=== PATIENT | female | born 1970 | race Caucasian/White ===

== ENCOUNTER 2018-10-25 01:42 | Emergency (ER) | payer SELFPAY ==
--- NOTE | 2018-10-25 02:08 | EDPHYS ---
Physician Documentation [facility] Name: Angela Zafar Age: 48 yrs Sex: Female : 1970 Arrival Date: 10/25/2018 Time: 01:49 Bed 6 Private MD: ED Physician Tapan Gomez HPI: 10/25 02:00 This 48 yrs old Female presents to ER via EMS with complaints of Laceration ollie To Hand. 02:00 The patient has a laceration related to: doing crafts, occurred at home, and there are ollie no complicating factors. The laceration(s) is(are) located on the right hand. Onset: The symptoms/episode began/occurred just prior to arrival. Associated signs and symptoms: The patient has no apparent associated signs or symptoms. 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 - Social history:: Smoking status: Patient uses tobacco products, smokes one pack cigarettes per day. Patient uses alcohol. - Ebola Screening: : No symptoms or risks identified at this time. ROS: 02:01 Constitutional: Negative for fever, chills, and weight loss, Eyes: Negative for injury, ollie pain, redness, and discharge, ENT: Negative for injury, pain, and discharge, Neck: Negative for injury, pain, and swelling, Cardiovascular: Negative for chest pain, palpitations, and edema, Respiratory: Negative for shortness of breath, cough, wheezing, and pleuritic chest pain, Abdomen/GI: Negative for abdominal pain, nausea, vomiting, diarrhea, and constipation, Back: Negative for injury and pain, : Negative for injury, bleeding, discharge, and swelling, Skin: Negative for injury, rash, and discoloration, Neuro: Negative for headache, weakness, numbness, tingling, and seizure, Psych: Negative for depression, anxiety, suicide ideation, homicidal ideation, and hallucinations, Allergy/Immunology: Negative for hives, rash, and allergies, Endocrine: Negative for neck swelling, polydipsia, polyuria, polyphagia, and marked weight changes, Hematologic/Lymphatic: Negative for swollen nodes, abnormal bleeding, and unusual bruising. 02:01 MS/extremity: Positive for pain, tenderness, of the right hand. Exam: 02:01 Constitutional: This is a well developed, well nourished patient who is awake, alert, ollie and in no acute distress. Head/Face: Normocephalic, atraumatic. Eyes: Pupils equal round and reactive to light, extra-ocular motions intact. Lids and lashes normal. Conjunctiva and sclera are non-icteric and not injected. Cornea within normal limits. Periorbital areas with no swelling, redness, or edema. ENT: Nares patent. No nasal discharge, no septal abnormalities noted. Tympanic membranes are normal and external auditory canals are clear. Oropharynx with no redness, swelling, or masses, exudates, or evidence of obstruction, uvula midline. Mucous membranes moist. Neck: Trachea midline, no thyromegaly or masses palpated, and no cervical lymphadenopathy. Supple, full range of motion without nuchal rigidity, or vertebral point tenderness. No Meningismus. Chest/axilla: Normal chest wall appearance and motion. Nontender with no deformity. No lesions are appreciated. Cardiovascular: Regular rate and rhythm with a normal S1 and S2. No gallops, murmurs, or rubs. Normal PMI, no JVD. No pulse deficits. Respiratory: Lungs have equal breath sounds bilaterally, clear to auscultation and percussion. No rales, rhonchi or wheezes noted. No increased work of breathing, no retractions or nasal flaring. Abdomen/GI: Soft, non-tender, with normal bowel sounds. No distension or tympany. No guarding or rebound. No evidence of tenderness throughout. Back: No spinal tenderness. No costovertebral tenderness. Full range of motion. Skin: Warm, dry with normal turgor. Normal color with no rashes, no lesions, and no evidence of cellulitis. Neuro: Awake and alert, GCS 15, oriented to person, place, time, and situation. Cranial nerves II-XII grossly intact. Motor strength 5/5 in all extremities. Sensory grossly intact. Cerebellar exam normal. Normal gait. Psych: Awake, alert, with orientation to person, place and time. Behavior, mood, and affect are within normal limits. 02:01 Musculoskeletal/extremity: ROM: full active range of motion, full passive range of motion, limited active range of motion, limited passive range of motion, Circulation is intact in all extremities. Sensation intact. Compartment Syndrome exam of affected extremity: is normal. no pain, no numbness, no tingling, no sensation deficit, no palor, no weak pulses. 02:01 Skin: injury, laceration(s), the wound is approximately 2.54 cm(s), with a depth of .25 cm(s), of the right hand. Vital Signs: 01:51 BP 126 / 87; Pulse 110; Resp 16 S; Temp 98.4(O); Pulse Ox 98% on R/A; Weight 63.5 kg bb (R); Height 5 ft. 0 in. (152.40 cm) (R); Pain 5/10; 02:35 BP 121 / 84; Pulse 106; Resp 17 S; Pulse Ox 98% on R/A; cc3 01:51 Body Mass Index 27.34 (63.50 kg, 152.40 cm) bb Laceration: 02:02 Wound Repair of 2.5cm ( 1.0in ) subcutaneous laceration to right hand. Irregularly ollie shaped.. Distal neuro/vascular/tendon intact. Anesthesia: Local anesthetic administered with 5 mls of 1% lidocaine w/ Epi. Wound prep: Simple cleansing by me. Skin closed with 3 3-0 Prolene using interrupted sutures and sterile technique. Dressed with Neosporin. Patient tolerated well. MDM: 01:49 Patient medically screened. [facility] 02:05 Data reviewed: vital signs, nurses notes, radiologic studies, plain films. [facility] 10/25 02:00 Order name: Hand Right 2 View XRAY [facility] 10/25 02:00 Order name: Prolene, Sutures; Complete Time: 02:[address] [facility] 10/25 02:00 Order name: Dressing - Wound; Complete Time: 02:[address] [facility] 10/25 02:00 Order name: Gloves, Sterile; Complete Time: 02:[address] [facility] 10/25 02:00 Order name: Setup Suture Tray; Complete Time: 02:[address] 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 Exp: cc3 07/04/2020. Lot #: [id number]. } Route: IM; Site: left deltoid; 02:22 Follow up: Response: No adverse reaction cc3 02:20 Drug: Lidocaine-Epinephrine -1%: (1:100,000) 5 ml {Note: given by Dr. Gomez.} jtom Volume: 20 ml; Route: Infiltration; 02:25 Follow up: Response: No adverse reaction cc3 02:25 Drug: Neosporin Ointment 1 application {Note: right hand wound.} Route: Topical; Site: cc3 wound; 02:37 Follow up: Response: No adverse reaction cc3 Disposition: 10/25/18 02:07 Discharged to Home. Impression: Laceration without foreign body of right hand. - Condition is Stable. - Discharge Instructions: Laceration Care, Adult, Laceration Care, Adult, Jhpr-on-Nptv. - Prescriptions for Keflex 500 mg Oral Capsule - take 1 capsule by ORAL route every 6 hours for 10 days; 28 capsule. Tylenol- Codeine #3 300-30 mg Oral Tablet - take 2 tablets by ORAL route every 6 hours As needed; 20 tablet. - Medication Reconciliation Form, Thank You Letter, Antibiotic Education, Prescription Opioid Use form. - Follow up: Private Physician; When: 2 - 3 days; Reason: Recheck today's complaints, Continuance of care, Re-evaluation by your physician. - Problem is new. - Symptoms have improved. Signatures: Dispatcher [employer] EDTapan Lobo MD MD cha Ballard, Brenda, RN RN Tk Briones RN RN jd3 Cordel, Charlene cc3 Corrections: (The following items were deleted from the chart) 02:39 02:07 10/25/2018 02:07 Discharged to Home. Impression: Laceration without foreign body cc3 of right hand. Condition is Stable. Forms are Medication Reconciliation Form, Thank You Letter, Antibiotic Education, Prescription Opioid Use. Follow up: Private Physician; When: 2 - 3 days; Reason: Recheck today's complaints, Continuance of care, Re-evaluation by your physician. Problem is new. Symptoms have improved. ollie
--- NOTE | 2018-10-25 02:08 | ER ---
Nurse's Notes [facility] Name: Angela Zafar Age: 48 yrs Sex: Female : 1970 Arrival Date: 10/25/2018 Time: 01:49 Bed 6 Private MD: Diagnosis: Laceration without foreign body of right hand Presentation: 10/25 01:49 Presenting complaint: EMS states: they were toned out for report of pt having bb laceration to right hand. Pt states she hit the window with her right hand. Transition of care: patient was not received from another setting of care. Complicating Factors: There are no complicating factors for this patient. Onset of symptoms was October 25, 2018. Risk Assessment: Do you want to hurt yourself or someone else? Patient reports no desire to harm self or others. Initial Sepsis Screen: Does the patient meet any 2 criteria? No. Patient's initial sepsis screen is negative. Does the patient have a suspected source of infection? No. Patient's initial sepsis screen is negative. Care prior to arrival: None. 01:49 Method Of Arrival: EMS: [facility] 01:49 Acuity: [facility] 4 bb 01:53 Note pt went outside to smoke states she will be right back. 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 - Social history:: Smoking status: Patient uses tobacco products, smokes one pack cigarettes per day. Patient uses alcohol. - Ebola Screening: : No symptoms or risks identified at this time. Screenin:05 Abuse screen: Denies threats or abuse. Nutritional screening: No deficits noted. jd3 Tuberculosis screening: No symptoms or risk factors identified. Fall Risk Ambulatory Aid- None/Bed Rest/Nurse Assist (0 pts). Gait- Normal/Bed Rest/Wheelchair (0 pts) Mental Status- Oriented to own ability (0 pts). Total Muñoz Fall Scale indicates No Risk (0-24 pts). Assessment: 01:50 General: Appears in no apparent distress. uncomfortable, Behavior is calm, cooperative, jd3 appropriate for age. Pain: Complains of pain in dorsum of right hand Quality of pain is described as aching, stinging. Neuro: Level of Consciousness is awake, alert, obeys commands, Oriented to person, place, time, situation. Cardiovascular: Capillary refill < 3 seconds Patient's skin is warm and dry. Respiratory: Airway is patent Respiratory effort is even, unlabored, Respiratory pattern is regular, symmetrical. GI: No signs and/or symptoms were reported involving the gastrointestinal system. : No signs and/or symptoms were reported regarding the genitourinary system. EENT: No signs and/or symptoms were reported regarding the EENT system. Derm: Skin is intact, Skin is dry, Skin is normal, Skin temperature is warm. Musculoskeletal: Circulation, motion, and sensation intact. Range of motion: intact in all extremities. Injury Description: Laceration sustained to dorsum of right hand is clean, 0.5 to 2.5 cm long, not bleeding. 02:37 Reassessment: Patient appears in no apparent distress at this time. Patient and/or cc3 family updated on plan of care and expected duration. Pain level reassessed. Patient is alert, oriented x 3, equal unlabored respirations, skin warm/dry/pink. Dr. Gomez discharged the patient home with prescriptions given. No IV cannula in situ. Wound cleaning and dressing done. Patient left ER vitally stable and ambulatory. Patient denies pain at this time. Vital Signs: 01:51 BP 126 / 87; Pulse 110; Resp 16 S; Temp 98.4(O); Pulse Ox 98% on R/A; Weight 63.5 kg bb (R); Height 5 ft. 0 in. (152.40 cm) (R); Pain 5/10; 02:35 BP 121 / 84; Pulse 106; Resp 17 S; Pulse Ox 98% on R/A; cc3 01:51 Body Mass Index 27.34 (63.50 kg, 152.40 cm) ED Course: 01:49 Patient arrived in ED. khang 01:49 Tapan Gomez MD is Attending Physician. [facility] 01:49 Briseyda Lazaro is Primary Nurse. cc3 01:50 Triage completed. bb 01:51 Arm band placed on Patient placed in an exam room, on a stretcher, on pulse oximetry. bb 02:06 Patient has correct armband on for positive identification. Bed in low position. Call jd3 light in reach. Side rails up X 1. 02:12 X-ray completed. Portable x-ray completed in exam room. Patient tolerated procedure kw well. 02:13 Hand Right 2 View XRAY In Process Unspecified. EDMS 02:37 No provider procedures requiring assistance completed. Patient did not have IV access cc3 during this emergency room visit. 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 Exp: cc3 07/04/2020. Lot #: [id number]. } Route: IM; Site: left deltoid; 02:22 Follow up: Response: No adverse reaction cc3 02:20 Drug: Lidocaine-Epinephrine -1%: (1:100,000) 5 ml {Note: given by Dr. Gomez.} jd3 Volume: 20 ml; Route: Infiltration; 02:25 Follow up: Response: No adverse reaction cc3 02:25 Drug: Neosporin Ointment 1 application {Note: right hand wound.} Route: Topical; Site: cc3 wound; 02:37 Follow up: Response: No adverse reaction cc3 Outcome: 02:07 Discharge ordered by MD. levin 02:37 Discharged to home ambulatory. cc3 02:37 Condition: stable 02:37 Discharge instructions given to patient, Instructed on discharge instructions, follow up and referral plans. medication usage, Demonstrated understanding of instructions, follow-up care, medications, Prescriptions given X 2. 02:39 Patient left the ED. cc3 Signatures: Dispatcher [employer] JUDITHHI Tapan Gomez MD MD cha Ballard, Brenda, RN RN Rosa Bryan Jonathon, RN RN Briseyda Crandall cc3
[2018-10-25] MEDS ORDERED: TETANUS & DIPHTHERIA TOX,ADULT 0.5 ML VIAL ONE (02:18)
[2018-10-25] MEDS ORDERED: LIDOCAINE 1% W/EPI 1:100,000 MDV 50 ML VIAL ONE (02:18)
--- NOTE | 2018-10-25 07:51 | RAD REPORT ---
EXAM DESCRIPTION: RAD - Hand Right 2 View - 10/25/2018 2:15 am CLINICAL HISTORY: PAIN COMPARISON: Chest Single View dated 08/26/2018; Chest Single View dated 08/19/2018; Chest Pa And Lat ( 2 Views) dated 10/10/2017; Chest Single View dated 10/27/2016No comparisons FINDINGS: Soft tissue swelling is seen along the lateral aspect of the hand. No acute fracture or di slocation evident. No radiopaque foreign body seen.
[2018-10-26] MEDS ORDERED: IBUPROFEN 400 MG TAB ONE (18:45)
== END 2018-10-25 02:39 | disposition home or self-care (01) ==
LOC: ER 01:42
PROC: 0JQJ0ZZ Repair Right Hand Subcutaneous Tissue and Fascia, Open Approach (ICD-10-PCS; principal; 2018-10-25)
DX: S61.411A Laceration without foreign body of right hand, initial encounter (principal); W45.8XXA Other foreign body or object entering through skin, initial encounter; Y93.89 Activity, other specified; Z23 Encounter for immunization
CPT/HCPCS: 90471; 90714; 99284

== ENCOUNTER 2018-10-25 09:12 | Emergency (ER) | payer SELFPAY ==
[2018-10-25] MEDS ORDERED: IBUPROFEN 200 MG TAB PO ONE (09:54)
[2018-10-25] MEDS ORDERED: IBUPROFEN 400 MG TAB ONE (09:54)
[2018-10-25] MEDS ORDERED: LORazepam 2 MG/ML VIAL ONE (09:54)
[2018-10-25] MEDS ORDERED: NICOTINE 21 MG/PAT TD ONE (10:16)
[2018-10-25 10:17] LABS: ALT/SGPT 27 U/L (12-78); AST/SGOT 38 U/L (15-37); Albumin 3.9 g/dL (3.4-5.0); Alkaline Phosphatase 69 U/L (45-117); BUN Blood Urea Nitrogen 28 mg/dL (7-18); Bicarbonate 26 mmol/L (21-32); Bilirubin Direct 0.2 mg/dL (0-0.2); Bilirubin Total 0.5 mg/dL (0.2-1.0); Glucose Level 95 mg/dL (74-106); Potassium 3.4 mmol/L (3.5-5.1); Protein, Total 7.6 g/dL (6.4-8.2); Sodium Level 139 mmol/L (136-145)
[2018-10-25 10:32] LABS: Absolute Lymphocytes (CBC) 2.8 K/uL (0.7-4.9); Basophils % 0.5 % (0-1.3); Hematocrit 40.8 % (36.0-45.0); Lymphocytes % 21.5 % (15.3-44.8); MPV 8.6 fL (7.6-11.3); Monocytes % 8.3 % (3.3-12.3); RBC Red Blood Cell Count 4.55 M/uL (3.86-4.86)
[2018-10-25 10:44] LABS: Protime INR 0.96
--- NOTE | 2018-10-25 10:47 | EKG ---
Test Date: 2018-10-25 Test Time: 09:32:20 Engineering Vice President: PAM/Radha MEASUREMENT RESULTS: Intervals: Rate: 106 CT: 142 QRSD: 76 QT: 334 QTc: 443 [place]: P: 65 CT: 142 QRS: 42 T: 55 INTERPRETIVE STATEMENTS: Sinus tachycardia Otherwise normal ECG No previous ECG available for comparison Electronically Signed On 10-25-18 10:47:32 CDT by Doe Alvarado
[2018-10-25 10:50] LABS: Barbiturates NEGATIVE (NEGATIVE); Benzodiazepines NEGATIVE (NEGATIVE); Cocaine NEGATIVE (NEGATIVE); METHAMPHETAM POSITIVE (NEGATIVE); Methadone NEGATIVE (NEGATIVE); Opiates POSITIVE (NEGATIVE); Phencyclidine NEGATIVE (NEGATIVE); THC Cannibis POSITIVE (NEGATIVE)
[2018-10-25 13:09] LABS: Urine Blood 1+ (NEG); Urine Glucose 1+ (NEG); Urine Protein 2+ (NEG); Urine pH 5.5 (5.0-7.0)
[2018-10-25] MEDS ORDERED: POTASSIUM CL SA 10 MEQ TAB PO ONE (17:30)
--- NOTE | 2018-10-25 18:17 | ER ---
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 age parameters. Depression: Score 1 point if signs of depression are present. Previous Attempt: Score 0 point if patient has not previously attempted suicide. Substance Abuse: Score 1 point if patient abuses alcohol or drugs. Rational Thinking: Score 1 point if patient is lacking rational thinking. Social Support: Score 1 point if social support is lacking and/or unavailable. Organized Plan: Score 0 if patient did not have an organized plan in place. Relationship: Score 1 point if patient is , , , or for a single male Chronic Sickness: Score 1 point if patient has illness, chronic, debilitating, or severe. TOTAL POINTS: If total points are 5-6, proposed clinical action is to strongly consider hospitalization, depending upon confidence in the follow-up arrangement. Implement suicide precautions. Safety Checks: Personal items have been removed. Door is open. No visitors are present at this time. Patient uses marijuana. 10/28 11:15 Commitment: Patient will be an involuntary commitment. Commitment papers completed. ca1 Vital Signs: 10/25 09:32 BP 135 / 116; Pulse 110; Resp 22; Temp 97.3; Pulse Ox 98% on R/A; ph 14:21 BP 107 / 71; Pulse 85; Resp 18; Pulse Ox 99% on R/A; jb1 17:20 BP 112 / 75; Pulse 82; Resp 17; Pulse Ox 100% on R/A; jb1 20:00 BP 107 / 69 LA (auto/); Pulse 81 MON; Resp 18 S; Temp 97.7(TE); Pulse Ox 97% on R/A; ms1 Pain 0/10; 10/26 00:00 BP 106 / 66 LA (auto/); Pulse 78 MON; Resp 18 S; Temp 97.9; Pulse Ox 97% on R/A; Pain ms1 0/10; 01:19 Weight 63.5 kg (R); Height 5 ft. 0 in. (152.40 cm) (R); jd3 05:19 BP 99 / 71 LA; Pulse 81 MON; Resp 18 S; Temp 98(TE); Pulse Ox 97% on R/A; Pain 0/10; ms1 05:54 BP 106 / 64 LA; Pulse 74 MON; Resp 18 S; Temp 98(TE); Pulse Ox 98% on R/A; Pain 0/10; ms1 09:50 BP 110 / 72; Pulse 83; Resp 18; Temp 97.6(TE); Pulse Ox 98% on R/A; Pain 0/10; dh3 13:50 BP 108 / 63; Pulse 72; Resp 18; Temp 98.0(TE); Pulse Ox 99% on R/A; Pain 0/10; dh3 17:50 BP 110 / 70; Pulse 85; Resp 18; Temp 97.7(A); Pulse Ox 99% on R/A; Pain 0/10; dh3 19:24 BP 117 / 71; Pulse 83; Resp 18; Temp 97.7; Pulse Ox 98% ; Pain 0/10; cm6 22:45 BP 100 / 67; Pulse 80; Resp 18; Temp 98.6; Pulse Ox 99% ; Pain 0/10; cm6 10/27 00:00 BP 103 / 64; Pulse 80; Resp 18; Temp 97.7; Pulse Ox 96% ; Pain 0/10; cm6 03:00 BP 97 / 65; Pulse 80; Resp 18; Temp 97.6; Pulse Ox 98% ; Pain 0/10; cm6 06:00 BP 110 / 60; Pulse 84; Resp 18; Temp 98.0; Pulse Ox 95% ; Pain 0/10; cm6 08:49 BP 104 / 62; Pulse 72; Resp 17; Pulse Ox 98% on R/A; jb1 17:26 BP 122 / 69; Pulse 89; Resp 20; Temp 99.3; Pulse Ox 98% on R/A; hk 10/28 00:22 BP 96 / 68; Pulse 77; Resp 20; Temp 98.8; Pulse Ox 97% on R/A; em4 03:40 BP 119 / 65; Pulse 78; Resp 20; Temp 99.0; Pulse Ox 95% on R/A; em4 07:00 BP 97 / 68; Pulse 78; Resp 15; Temp 97.8(TE); Pulse Ox 97% on R/A; mh5 11:05 BP 116 / 65; Pulse 74; Resp 16 S; Temp 98.1(O); Pulse Ox 98% on R/A; ca1 10/26 01:19 Body Mass Index 27.34 (63.50 kg, 152.40 cm) jd3 ED Course: 10/25 09:14 Patient arrived in ED. iw 09:16 Fish Rhodes MD is Attending Physician. rn 09:24 Clare Bai RN is Primary Nurse. ph 09:27 called the [facility] and spoke to Bushra/ she will call a screener to call us eb back to give patient history. 09:30 Triage completed. iw 09:30 Safety checks: Items removed: yes. Door open/sign placed on door: yes. Family/friend jb1 present: no. Sitter present: Yes. 09:30 Inserted saline lock: 22 gauge in left antecubital area, using aseptic technique. Blood jb1 collected. 09:35 EKG done, by sterile instrument technician. reviewed by Fish Rhodes MD. at1 09:45 Safety checks: Items removed: yes. Door open/sign placed on door: yes. Family/friend jb1 present: no. Sitter present: Yes. 09:46 connected Jena from the [facility] with PJ. eb 10:00 Safety checks: Items removed: yes. Door open/sign placed on door: yes. Family/friend jb1 present: no. Sitter present: Yes. 10:18 Urine collected: clean catch specimen, cloudy, vik colored. jb1 10:30 Safety checks: Items removed: yes. Door open/sign placed on door: no. Family/friend jb1 present: no. Sitter present: Yes. 10:37 Allergy band placed. Bed in low position. Call light in reach. Side rails up X2. Door ph closed. Noise minimized. Lights dimmed. Warm blanket given. Pillow given. Verbal reassurance given. 10:37 Arm band placed on left wrist. ph 10:37 No provider procedures requiring assistance completed. ph 10:45 No apparent distress. Resting quietly. Safety Checks: Personal items have been removed. tw2 The door is open or patient has been placed in a hallway bed/chair. There are no family/friend visitors at this time Sitter present at this time. 10:45 Safety checks: Items removed: yes. Door open/sign placed on door: no. Family/friend jb1 present: no. Sitter present: Yes. 11:00 Safety checks: Items removed: yes. Door open/sign placed on door: no. Family/friend jb1 present: no. Sitter present: Yes. 11:15 Safety checks: Items removed: yes. Door open/sign placed on door: no. Family/friend jb1 present: no. Sitter present: Yes. 11:30 Safety checks: Items removed: yes. Door open/sign placed on door: no. Family/friend jb1 present: no. Sitter present: Yes. 11:45 Safety checks: Items removed: yes. Door open/sign placed on door: no. Family/friend mh5 present: no. Sitter present: Yes. 12:00 Safety checks: Items removed: yes. Door open/sign placed on door: no. Family/friend mh5 present: no. Sitter present: Yes. 12:15 Safety checks: Items removed: yes. Door open/sign placed on door: no. Family/friend mh5 present: no. Sitter present: Yes. 12:30 Safety checks: Items removed: yes. Door open/sign placed on door: no. Family/friend jb1 present: no. Sitter present: Yes. 12:45 Safety checks: Items removed: yes. Door open/sign placed on door: no. Family/friend jb1 present: no. Sitter present: Yes. 13:00 Safety checks: Items removed: yes. Door open/sign placed on door: no. Family/friend jb1 present: no. Sitter present: Yes. 13:15 Safety checks: Items removed: yes. Door open/sign placed on door: no. Family/friend jb1 present: no. Sitter present: Yes. 13:30 Safety checks: Items removed: yes. Door open/sign placed on door: no. Family/friend jb1 present: no. Sitter present: Yes. 13:45 Safety checks: Items removed: yes. Door open/sign placed on door: no. Family/friend jb1 present: no. Sitter present: Yes. 14:00 Safety checks: Items removed: yes. Door open/sign placed on door: no. Family/friend jb1 present: no. Sitter present: Yes. 14:15 Safety checks: Items removed: yes. Door open/sign placed on door: no. Family/friend jb1 present: no. Sitter present: Yes. 14:30 Safety checks: Items removed: yes. Door open/sign placed on door: no. Family/friend jb1 present: no. Sitter present: Yes. 14:45 Safety checks: Items removed: yes. Door open/sign placed on door: no. Family/friend jb1 present: no. Sitter present: Yes. 15:00 Safety checks: Items removed: yes. Door open/sign placed on door: no. Family/friend jb1 present: no. Sitter present: Yes. 15:15 Safety checks: Items removed: yes. Door open/sign placed on door: no. Family/friend jb1 present: no. Sitter present: Yes. 15:30 Safety checks: Items removed: yes. Door open/sign placed on door: no. Family/friend jb1 present: no. Sitter present: Yes. 15:45 Safety checks: Items removed: yes. Door open/sign placed on door: no. Family/friend jb1 present: Other: [employer] outside medical sales representative present and talking to patient. Sitter present: Yes. 16:00 Safety checks: Items removed: yes. Door open/sign placed on door: no. Family/friend jb1 present: no. Sitter present: Yes. 16:15 Safety checks: Items removed: yes. Door open/sign placed on door: no. Family/friend jb1 present: no. Sitter present: Yes. 16:30 Safety checks: Items removed: yes. Door open/sign placed on door: no. Family/friend jb1 present: no. Sitter present: Yes. 16:45 Safety Checks: Personal items have been removed. The door is open or patient has been tw2 placed in a hallway bed/chair. There are no family/friend visitors at this time Sitter present at this time. 16:45 Safety checks: Items removed: yes. Door open/sign placed on door: no. Family/friend jb1 present: no. Sitter present: Yes. 17:00 No apparent distress. Resting quietly. Safety Checks: Personal items have been removed. tw2 The door is open or patient has been placed in a hallway bed/chair. There are no family/friend visitors at this time Sitter present at this time. 17:00 Safety checks: Items removed: yes. Door open/sign placed on door: no. Family/friend jb1 present: no. Sitter present: Yes. 17:15 Safety checks: Items removed: yes. Door open/sign placed on door: no. Family/friend jb1 present: no. Sitter present: Yes. 17:30 Safety checks: Items removed: yes. Door open/sign placed on door: no. Family/friend jb1 present: no. Sitter present: Yes. 17:45 Safety checks: Items removed: yes. Door open/sign placed on door: no. Family/friend jb1 present: no. Sitter present: Yes. 18:00 Safety checks: Items removed: yes. Door open/sign placed on door: no. Family/friend jb1 present: no. Sitter present: Yes. 18:15 Safety checks: Items removed: yes. Door open/sign placed on door: no. Family/friend jb1 present: no. Sitter present: Yes. 18:30 Safety checks: Items removed: yes. Door open/sign placed on door: no. Family/friend jb1 present: no. Sitter present: Yes. 19:00 Primary Nurse role handed off by Clare Bai RN ed1 19:00 Harini Wilkins RN is Primary Nurse. ed1 19:05 Safety Checks: Personal items have been removed. The door is open or patient has been ms1 placed in a hallway bed/chair. There are no family/friend visitors at this time Sitter present at this time. Pt is lying in bed calm, not in distress; comfortably sleeping. 19:15 Safety Checks: Personal items have been removed. The door is open or patient has been ms1 placed in a hallway bed/chair. There are no family/friend visitors at this time Sitter present at this time. 19:26 No apparent distress. Appears to be sleeping. transfer approval from receiving facility.ed1 19:30 Safety Checks: Personal items have been removed. The door is open or patient has been ms1 placed in a hallway bed/chair. There are no family/friend visitors at this time Sitter present at this time. 19:45 Safety Checks: Personal items have been removed. The door is open or patient has been ms1 placed in a hallway bed/chair. There are no family/friend visitors at this time Sitter present at this time. 20:00 Safety Checks: Personal items have been removed. The door is open or patient has been ms1 placed in a hallway bed/chair. There are no family/friend visitors at this time Sitter present at this time. 20:15 Safety Checks: Personal items have been removed. The door is open or patient has been ms1 placed in a hallway bed/chair. There are no family/friend visitors at this time Sitter present at this time. 20:30 Safety Checks: Personal items have been removed. The door is open or patient has been ms1 placed in a hallway bed/chair. There are no family/friend visitors at this time Sitter present at this time. 20:45 Safety Checks: Personal items have been removed. The door is open or patient has been ms1 placed in a hallway bed/chair. There are no family/friend visitors at this time Sitter present at this time. 21:00 Safety Checks: Personal items have been removed. The door is open or patient has been ms1 placed in a hallway bed/chair. There are no family/friend visitors at this time Sitter present at this time. 21:15 Safety Checks: Personal items have been removed. The door is open or patient has been ms1 placed in a hallway bed/chair. There are no family/friend visitors at this time Sitter present at this time. 21:30 Safety Checks: Personal items have been removed. The door is open or patient has been ms1 placed in a hallway bed/chair. There are no family/friend visitors at this time Sitter present at this time. 21:45 Safety Checks: Personal items have been removed. The door is open or patient has been ms1 placed in a hallway bed/chair. There are no family/friend visitors at this time Sitter present at this time. 22:00 Safety Checks: Personal items have been removed. The door is open or patient has been ms1 placed in a hallway bed/chair. There are no family/friend visitors at this time Sitter present at this time. 22:15 Safety Checks: Personal items have been removed. The door is open or patient has been ms1 placed in a hallway bed/chair. There are no family/friend visitors at this time Sitter present at this time. 22:30 Safety Checks: Personal items have been removed. The door is open or patient has been ms1 placed in a hallway bed/chair. There are no family/friend visitors at this time Sitter present at this time. 22:45 Safety Checks: Personal items have been removed. The door is open or patient has been ms1 placed in a hallway bed/chair. There are no family/friend visitors at this time Sitter present at this time. 23:00 Safety Checks: Personal items have been removed. The door is open or patient has been ms1 placed in a hallway bed/chair. There are no family/friend visitors at this time Sitter present at this time. 23:15 Safety Checks: Personal items have been removed. The door is open or patient has been ms1 placed in a hallway bed/chair. There are no family/friend visitors at this time Sitter present at this time. 23:30 Safety Checks: Personal items have been removed. The door is open or patient has been ms1 placed in a hallway bed/chair. There are no family/friend visitors at this time Sitter present at this time. 23:45 Safety Checks: Personal items have been removed. The door is open or patient has been ms1 placed in a hallway bed/chair. There are no family/friend visitors at this time Sitter present at this time. 10/26 00:00 Safety Checks: Personal items have been removed. The door is open or patient has been ms1 placed in a hallway bed/chair. There are no family/friend visitors at this time Sitter present at this time. 00:14 Primary Nurse role handed off by Harini Wilkins, SADI jd3 00:14 Tk Robison, SADI is Primary Nurse. jd3 00:15 Safety Checks: Personal items have been removed. The door is open or patient has been ms1 placed in a hallway bed/chair. There are no family/friend visitors at this time Sitter present at this time. Pt is awake; pt was offered snacks and water ; pt stated " she slept good". Pt is not in distress. 00:16 Diet tray given. PO fluids given. Verbal reassurance given. jd3 00:30 Safety Checks: Personal items have been removed. The door is open or patient has been ms1 placed in a hallway bed/chair. There are no family/friend visitors at this time Sitter present at this time. 00:40 Safety Checks: Other: Pt stated "I need pain medication, my right arm is hurting; also ms1 I need Ativan." Informed SADI Frey about the pt's request. 00:45 Safety Checks: Personal items have been removed. The door is open or patient has been ms1 placed in a hallway bed/chair. 01:00 Safety Checks: Personal items have been removed. The door is open or patient has been ms1 placed in a hallway bed/chair. There are no family/friend visitors at this time Sitter present at this time. 01:00 Safety Checks: Other: Pt was given Motrin PO for pain and Ativan 2 mg IV as ordered. Pt ms1 became emotional and started crying. Pt stated she only wants her sister named Scarlett to visit her and to let her know she is here. 01:15 Safety Checks: Personal items have been removed. The door is open or patient has been ms1 placed in a hallway bed/chair. There are no family/friend visitors at this time Sitter present at this time. Pt appears calm now; not in apprent distress; sleeping comfortably. 01:30 Safety Checks: Personal items have been removed. The door is open or patient has been ms1 placed in a hallway bed/chair. There are no family/friend visitors at this time Sitter present at this time. 01:45 Safety Checks: Personal items have been removed. The door is open or patient has been ms1 placed in a hallway bed/chair. There are no family/friend visitors at this time Sitter present at this time. 02:00 Safety Checks: Personal items have been removed. The door is open or patient has been ms1 placed in a hallway bed/chair. There are no family/friend visitors at this time Sitter present at this time. 02:15 Safety Checks: Personal items have been removed. The door is open or patient has been ms1 placed in a hallway bed/chair. There are no family/friend visitors at this time Sitter present at this time. 02:30 Safety Checks: Personal items have been removed. The door is open or patient has been ms1 placed in a hallway bed/chair. There are no family/friend visitors at this time Sitter present at this time. 02:45 Safety Checks: Personal items have been removed. The door is open or patient has been ms1 placed in a hallway bed/chair. There are no family/friend visitors at this time Sitter present at this time. 03:00 Safety Checks: Personal items have been removed. The door is open or patient has been ms1 placed in a hallway bed/chair. There are no family/friend visitors at this time Sitter present at this time. 03:00 Report given to Mando ZAMBRANO jd3 03:15 Safety Checks: Personal items have been removed. The door is open or patient has been ms1 placed in a hallway bed/chair. There are no family/friend visitors at this time Sitter present at this time. 03:30 Safety Checks: Personal items have been removed. The door is open or patient has been ms1 placed in a hallway bed/chair. There are no family/friend visitors at this time Sitter present at this time. 03:45 Safety Checks: Personal items have been removed. The door is open or patient has been ms1 placed in a hallway bed/chair. There are no family/friend visitors at this time Sitter present at this time. 04:00 Safety Checks: Personal items have been removed. The door is open or patient has been ms1 placed in a hallway bed/chair. There are no family/friend visitors at this time Sitter present at this time. 04:15 Safety Checks: Personal items have been removed. The door is open or patient has been ms1 placed in a hallway bed/chair. There are no family/friend visitors at this time Sitter present at this time. 04:30 Safety Checks: Personal items have been removed. The door is open or patient has been ms1 placed in a hallway bed/chair. There are no family/friend visitors at this time Sitter present at this time. 04:45 Safety Checks: Personal items have been removed. The door is open or patient has been ms1 placed in a hallway bed/chair. There are no family/friend visitors at this time Sitter present at this time. 05:00 Safety Checks: Personal items have been removed. The door is open or patient has been ms1 placed in a hallway bed/chair. There are no family/friend visitors at this time Sitter present at this time. 05:15 Safety Checks: Personal items have been removed. The door is open or patient has been ms1 placed in a hallway bed/chair. There are no family/friend visitors at this time Sitter present at this time. 05:30 Safety Checks: Personal items have been removed. The door is open or patient has been ms1 placed in a hallway bed/chair. There are no family/friend visitors at this time Sitter present at this time. 05:45 Safety Checks: Personal items have been removed. The door is open or patient has been ms1 placed in a hallway bed/chair. There are no family/friend visitors at this time Sitter present at this time. 06:00 Safety Checks: Personal items have been removed. The door is open or patient has been ms1 placed in a hallway bed/chair. There are no family/friend visitors at this time Sitter present at this time. 06:15 Safety Checks: Personal items have been removed. The door is open or patient has been ms1 placed in a hallway bed/chair. There are no family/friend visitors at this time Sitter present at this time. 06:30 Safety Checks: Personal items have been removed. The door is open or patient has been ms1 placed in a hallway bed/chair. There are no family/friend visitors at this time Sitter present at this time. 06:50 Safety Checks: Personal items have been removed. The door is open or patient has been ms1 placed in a hallway bed/chair. There are no family/friend visitors at this time Sitter present at this time. Pt is assisted to the restroom to urinate; pt assisted to use the phone to call her sister. Pt stated she needs to smoke. Pt is discouraged to smoke. 07:00 Safety checks: Items removed: yes. Door open/sign placed on door: yes. Family/friend dh3 present: no. Sitter present: Yes. 07:15 Safety checks: Items removed: yes. Door open/sign placed on door: yes. Family/friend dh3 present: no. Sitter present: Yes. 07:30 Safety checks: Items removed: yes. Door open/sign placed on door: yes. Family/friend dh3 present: no. Sitter present: Yes. 07:45 Safety checks: Items removed: yes. Door open/sign placed on door: yes. Family/friend dh3 present: no. Sitter present: Yes. 08:00 Safety checks: Items removed: yes. Door open/sign placed on door: yes. Family/friend dh3 present: no. Sitter present: Yes. 08:15 Safety checks: Items removed: yes. Door open/sign placed on door: yes. Family/friend dh3 present: no. Sitter present: Yes. 08:30 Safety checks: Items removed: yes. Door open/sign placed on door: yes. Family/friend dh3 present: no. Sitter present: Yes. 08:45 Safety checks: Items removed: yes. Door open/sign placed on door: yes. Family/friend dh3 present: no. Sitter present: Yes. 09:00 Safety checks: Items removed: yes. Door open/sign placed on door: yes. Family/friend dh3 present: no. Sitter present: Yes. 09:15 Safety checks: Items removed: yes. Door open/sign placed on door: yes. Family/friend dh3 present: no. Sitter present: Yes. 09:30 Safety checks: Items removed: yes. Door open/sign placed on door: yes. Family/friend dh3 present: no. Sitter present: Yes. 09:45 Safety checks: Items removed: yes. Door open/sign placed on door: yes. Family/friend dh3 present: no. Sitter present: Yes. 10:00 Safety checks: Items removed: yes. Door open/sign placed on door: yes. Family/friend dh3 present: no. Sitter present: Yes. 10:15 Safety checks: Items removed: yes. Door open/sign placed on door: yes. Family/friend dh3 present: no. Sitter present: Yes. 10:30 Safety checks: Items removed: yes. Door open/sign placed on door: yes. Family/friend dh3 present: no. Sitter present: Yes. 10:45 Safety checks: Items removed: yes. Door open/sign placed on door: yes. Family/friend dh3 present: no. Sitter present: Yes. 11:00 Safety checks: Items removed: yes. Door open/sign placed on door: yes. Family/friend dh3 present: no. Sitter present: Yes. 11:15 Safety checks: Items removed: yes. Door open/sign placed on door: yes. Family/friend dh3 present: no. Sitter present: Yes. 11:30 Safety checks: Items removed: yes. Door open/sign placed on door: yes. Family/friend dh3 present: no. Sitter present: Yes. 11:45 Safety checks: Items removed: yes. Door open/sign placed on door: yes. Family/friend dh3 present: no. Sitter present: Yes. 12:00 Safety checks: Items removed: yes. Door open/sign placed on door: yes. Family/friend dh3 present: no. Sitter present: Yes. 12:15 Safety checks: Items removed: yes. Door open/sign placed on door: yes. Family/friend dh3 present: no. Sitter present: Yes. 12:30 Safety checks: Items removed: yes. Door open/sign placed on door: yes. Family/friend dh3 present: no. Sitter present: Yes. 12:45 Safety checks: Items removed: yes. Door open/sign placed on door: yes. Family/friend dh3 present: no. Sitter present: Yes. 13:00 Safety checks: Items removed: yes. Door open/sign placed on door: yes. Family/friend dh3 present: no. Sitter present: Yes. 13:15 Safety checks: Items removed: yes. Door open/sign placed on door: yes. Family/friend dh3 present: no. Sitter present: Yes. 13:30 Safety checks: Items removed: yes. Door open/sign placed on door: yes. Family/friend dh3 present: no. Sitter present: Yes. 13:45 Safety checks: Items removed: yes. Door open/sign placed on door: yes. Family/friend dh3 present: no. Sitter present: Yes. 14:00 Safety checks: Items removed: yes. Door open/sign placed on door: yes. Family/friend dh3 present: no. Sitter present: Yes. 14:15 Safety checks: Items removed: yes. Door open/sign placed on door: yes. Family/friend dh3 present: no. Sitter present: Yes. 14:30 Safety checks: Items removed: yes. Door open/sign placed on door: yes. Family/friend dh3 present: no. Sitter present: Yes. 14:45 Safety checks: Items removed: yes. Door open/sign placed on door: yes. Family/friend dh3 present: no. Sitter present: Yes. 15:00 Safety checks: Items removed: yes. Door open/sign placed on door: no. Family/friend jp3 present: no. Sitter present: Yes. 15:15 Safety checks: Items removed: yes. Door open/sign placed on door: no. Family/friend jp3 present: no. Sitter present: Yes. 15:30 Safety checks: Items removed: yes. Door open/sign placed on door: no. Family/friend jp3 present: no. Sitter present: Yes. 15:45 Safety checks: Items removed: yes. Door open/sign placed on door: yes. Family/friend dh3 present: no. Sitter present: Yes. 16:00 Safety checks: Items removed: yes. Door open/sign placed on door: yes. Family/friend dh3 present: no. Sitter present: Yes. 16:15 Safety checks: Items removed: yes. Door open/sign placed on door: yes. Family/friend dh3 present: no. Sitter present: Yes. 16:30 Safety checks: Items removed: yes. Door open/sign placed on door: yes. Family/friend dh3 present: no. Sitter present: Yes. 16:45 Safety checks: Items removed: yes. Door open/sign placed on door: yes. Family/friend dh3 present: no. Sitter present: Yes. 17:00 Safety checks: Items removed: yes. Door open/sign placed on door: yes. Family/friend dh3 present: no. Sitter present: Yes. 17:15 Safety checks: Items removed: yes. Door open/sign placed on door: yes. Family/friend dh3 present: no. Sitter present: Yes. 17:30 Safety checks: Items removed: yes. Door open/sign placed on door: yes. Family/friend dh3 present: no. Sitter present: Yes. 17:45 Safety checks: Items removed: yes. Door open/sign placed on door: yes. Family/friend dh3 present: no. Sitter present: Yes. 18:00 Safety checks: Items removed: yes. Door open/sign placed on door: yes. Family/friend dh3 present: no. Sitter present: Yes. 18:15 Safety checks: Items removed: yes. Door open/sign placed on door: yes. Family/friend dh3 present: no. Sitter present: Yes. 18:30 Safety checks: Items removed: yes. Door open/sign placed on door: yes. Family/friend dh3 present: yes. Family/friends encouraged to stay with patient. Sitter present: Yes. 18:45 Safety checks: Items removed: yes. Door open/sign placed on door: yes. Family/friend dh3 present: yes. Family/friends encouraged to stay with patient. Sitter present: Yes. 19:00 Safety checks: Items removed: yes. Door open/sign placed on door: yes. Family/friend dh3 present: yes. Family/friends encouraged to stay with patient. Sitter present: Yes. 19:15 Safety checks: Items removed: yes. Door open/sign placed on door: yes. Family/friend cm6 present: yes. Sitter present: Yes. 19:30 Safety checks: Items removed: yes. Door open/sign placed on door: yes. Family/friend cm6 present: yes. Sitter present: Yes. 19:32 IV discontinued, infiltration noted. rr5 19:34 Inserted saline lock: 22 gauge in left hand, using aseptic technique. rr5 19:45 Safety checks: Items removed: yes. Door open/sign placed on door: yes. Family/friend cm6 present: yes. Sitter present: Yes. 20:00 Safety checks: Items removed: yes. Door open/sign placed on door: yes. Family/friend cm6 present: no. Sitter present: Yes. 20:15 Safety checks: Items removed: yes. Door open/sign placed on door: yes. Family/friend cm6 present: no. Sitter present: Yes. 20:30 Safety checks: Items removed: yes. Door open/sign placed on door: yes. Family/friend cm6 present: no. Sitter present: Yes. 20:45 Safety checks: Items removed: yes. Door open/sign placed on door: yes. Family/friend cm6 present: no. Sitter present: Yes. 21:00 Safety checks: Items removed: yes. Door open/sign placed on door: yes. Family/friend cm6 present: no. Sitter present: Yes. 21:15 Safety checks: Items removed: yes. Door open/sign placed on door: yes. Family/friend cm6 present: no. Sitter present: Yes. 21:30 Safety checks: Items removed: yes. Door open/sign placed on door: yes. Family/friend cm6 present: no. Sitter present: Yes. 21:45 Safety checks: Items removed: yes. Door open/sign placed on door: yes. Family/friend cm6 present: no. Sitter present: Yes. 22:00 Safety checks: Items removed: yes. Door open/sign placed on door: yes. Family/friend cm6 present: no. Sitter present: Yes. 22:15 Safety checks: Items removed: yes. Door open/sign placed on door: yes. Family/friend cm6 present: no. Sitter present: Yes. 22:30 Safety checks: Items removed: yes. Door open/sign placed on door: yes. Family/friend cm6 present: no. Sitter present: Yes. 22:45 Safety checks: Items removed: yes. Door open/sign placed on door: yes. Family/friend cm6 present: no. Sitter present: Yes. 23:00 Safety checks: Items removed: yes. Door open/sign placed on door: yes. Family/friend cm6 present: no. Sitter present: Yes. 23:15 Safety checks: Items removed: yes. Door open/sign placed on door: yes. Family/friend cm6 present: no. Sitter present: Yes. 23:30 Safety checks: Items removed: yes. Door open/sign placed on door: yes. Family/friend cm6 present: no. Sitter present: Yes. 23:45 Safety checks: Items removed: yes. Door open/sign placed on door: yes. Family/friend cm6 present: no. Sitter present: Yes. 10/27 00:00 Safety checks: Items removed: yes. Door open/sign placed on door: yes. Family/friend cm6 present: no. Sitter present: Yes. 00:15 Safety checks: Items removed: yes. Door open/sign placed on door: yes. Family/friend cm6 present: no. Sitter present: Yes. 00:30 Safety checks: Items removed: yes. Door open/sign placed on door: yes. Family/friend cm6 present: no. Sitter present: Yes. 00:45 Safety checks: Items removed: Door open/sign placed on door: yes. Family/friend cm6 present: no. Sitter present: Yes. 01:00 Safety checks: Items removed: yes. Door open/sign placed on door: yes. Family/friend cm6 present: no. Sitter present: Yes. 01:15 Safety checks: Items removed: yes. Door open/sign placed on door: yes. Family/friend cm6 present: no. Sitter present: Yes. 01:30 Safety checks: Items removed: yes. Door open/sign placed on door: yes. Family/friend cm6 present: no. Sitter present: Yes. 01:45 Safety checks: Items removed: yes. Door open/sign placed on door: yes. Family/friend cm6 present: no. Sitter present: Yes. 02:00 Safety checks: Items removed: yes. Door open/sign placed on door: yes. Family/friend cm6 present: no. Sitter present: Yes. 02:15 Safety checks: Items removed: yes. Door open/sign placed on door: yes. Family/friend cm6 present: no. Sitter present: Yes. 02:30 Safety checks: Items removed: yes. Door open/sign placed on door: yes. Family/friend cm6 present: no. Sitter present: Yes. 02:45 Safety checks: Items removed: yes. Door open/sign placed on door: yes. Family/friend cm6 present: no. Sitter present: Yes. 03:00 Safety checks: Items removed: yes. Door open/sign placed on door: yes. Family/friend cm6 present: no. Sitter present: Yes. 03:15 Safety checks: Items removed: yes. Door open/sign placed on door: yes. Family/friend cm6 present: no. Sitter present: Yes. 03:30 Safety checks: Items removed: yes. Door open/sign placed on door: yes. Family/friend cm6 present: no. Sitter present: Yes. 03:45 Safety checks: Items removed: yes. Door open/sign placed on door: yes. Family/friend cm6 present: no. Sitter present: Yes. 04:00 Safety checks: Items removed: yes. Door open/sign placed on door: yes. Family/friend cm6 present: no. Sitter present: Yes. 04:15 Safety checks: Items removed: yes. Door open/sign placed on door: yes. Family/friend cm6 present: no. Sitter present: Yes. 04:30 Safety checks: Items removed: yes. Door open/sign placed on door: yes. Family/friend cm6 present: no. Sitter present: Yes. 04:45 Safety checks: Items removed: yes. Door open/sign placed on door: yes. Family/friend cm6 present: no. Sitter present: Yes. 05:00 Safety checks: Items removed: yes. Door open/sign placed on door: yes. Family/friend cm6 present: no. Sitter present: Yes. 05:15 Safety checks: Items removed: yes. Door open/sign placed on door: yes. Family/friend cm6 present: no. Sitter present: Yes. 05:30 Safety checks: Items removed: yes. Door open/sign placed on door: yes. Family/friend cm6 present: no. Sitter present: Yes. 05:45 Safety checks: Items removed: yes. Door open/sign placed on door: yes. Family/friend cm6 present: no. Sitter present: Yes. 06:00 Safety checks: Items removed: yes. Door open/sign placed on door: yes. Family/friend cm6 present: no. Sitter present: Yes. 06:15 Safety checks: Items removed: yes. Door open/sign placed on door: yes. Family/friend cm6 present: no. Sitter present: Yes. 06:30 Safety checks: Items removed: yes. Door open/sign placed on door: yes. Family/friend cm6 present: no. Sitter present: Yes. 06:45 Safety checks: Items removed: yes. Door open/sign placed on door: yes. Family/friend cm6 present: no. Sitter present: Yes. 07:00 Safety checks: Items removed: yes. Door open/sign placed on door: yes. Family/friend jb1 present: no. Sitter present: Yes. 07:15 Safety checks: Items removed: yes. Door open/sign placed on door: yes. Family/friend jb1 present: no. Sitter present: Yes. 07:30 Safety checks: Items removed: yes. Door open/sign placed on door: yes. Family/friend jb1 present: no. Sitter present: Yes. 07:45 Safety checks: Items removed: yes. Door open/sign placed on door: yes. Family/friend jb1 present: no. Sitter present: Yes. Other: Patient is eating breakfast tray. 08:00 Safety checks: Items removed: yes. Door open/sign placed on door: yes. Family/friend jb1 present: no. Sitter present: Yes. 08:15 Safety checks: Items removed: yes. Door open/sign placed on door: yes. Family/friend jb1 present: no. Sitter present: Yes. 08:30 Safety checks: Items removed: yes. Door open/sign placed on door: yes. Family/friend jb1 present: no. Sitter present: Yes. 08:45 Safety checks: Items removed: yes. Door open/sign placed on door: yes. Family/friend jb1 present: no. Sitter present: Yes. 09:00 Safety checks: Items removed: yes. Door open/sign placed on door: yes. Family/friend jb1 present: no. Sitter present: Yes. 09:15 Safety checks: Items removed: yes. Door open/sign placed on door: yes. Family/friend jb1 present: no. Sitter present: Yes. 09:30 Safety checks: Items removed: yes. Door open/sign placed on door: yes. Family/friend jb1 present: no. Sitter present: Yes. 09:45 Safety checks: Items removed: yes. Door open/sign placed on door: yes. Family/friend jb1 present: no. Sitter present: Yes. 10:00 Safety checks: Items removed: yes. Door open/sign placed on door: yes. Family/friend jb1 present: no. Sitter present: Yes. 10:15 Safety checks: Items removed: yes. Door open/sign placed on door: yes. Family/friend jb1 present: no. Sitter present: Yes. 10:30 Safety checks: Items removed: yes. Door open/sign placed on door: yes. Family/friend jb1 present: no. Sitter present: Yes. 10:45 Safety checks: Items removed: yes. Door open/sign placed on door: yes. Family/friend jb1 present: no. Sitter present: Yes. 11:00 Safety checks: Items removed: yes. Door open/sign placed on door: yes. Family/friend jb1 present: no. Sitter present: Yes. 11:15 Safety checks: Items removed: yes. Door open/sign placed on door: yes. Family/friend jb1 present: no. Sitter present: Yes. 11:30 Safety checks: Items removed: yes. Door open/sign placed on door: yes. Family/friend jb1 present: no. Sitter present: Yes. 11:45 Safety checks: Items removed: yes. Door open/sign placed on door: yes. Family/friend jb1 present: no. Sitter present: Yes. 12:00 Safety checks: Items removed: yes. Door open/sign placed on door: yes. Family/friend jb1 present: no. Sitter present: Yes. 12:15 Safety checks: Items removed: yes. Door open/sign placed on door: yes. Family/friend jb1 present: no. Sitter present: Yes. 12:30 Safety checks: Items removed: yes. Door open/sign placed on door: yes. Family/friend jb1 present: no. Sitter present: Yes. 12:45 Safety checks: Items removed: yes. Door open/sign placed on door: yes. Family/friend jb1 present: no. Sitter present: Yes. 13:00 Safety checks: Items removed: yes. Door open/sign placed on door: yes. Family/friend jb1 present: no. Sitter present: Yes. 13:15 Safety checks: Items removed: yes. Door open/sign placed on door: yes. Family/friend jb1 present: yes. Sitter present: Yes. 13:30 Safety checks: Items removed: yes. Door open/sign placed on door: yes. Family/friend hk present: yes. Family/friends encouraged to stay with patient. Sitter present: Yes. 13:45 Safety checks: Items removed:. hk 13:45 Safety checks: Door open/sign placed on door: yes. Family/friend present: yes. hk Family/friends encouraged to stay with patient. Sitter present: Yes. 14:00 Safety checks: Items removed: yes. Door open/sign placed on door: yes. Family/friend hk present: yes. Sitter present: Yes. 14:13 Assisted to bathroom. Shower given. hk 14:14 Safety checks: Items removed: yes. Door open/sign placed on door: yes. Family/friend hk present: yes. Sitter present: Yes. 14:26 Safety checks: Items removed: yes. Door open/sign placed on door: yes. Family/friend hk present: no. Sitter present: Yes. 14:35 Safety checks: Items removed: Door open/sign placed on door: yes. Family/friend hk present: no. Sitter present: Yes. 14:50 Safety checks: Items removed: yes. Door open/sign placed on door: yes. Family/friend hk present: no. Sitter present: Yes. 15:02 Safety checks: Items removed: yes. Door open/sign placed on door: yes. Family/friend hk present: no. Sitter present: Yes. 15:15 Safety checks: Items removed: Door open/sign placed on door: yes. Family/friend hk present: no. Sitter present: Yes. 15:30 Safety checks: Items removed: yes. Door open/sign placed on door: yes. Family/friend hk present: no. Sitter present: Yes. 15:44 talked to [facility], pt is still is second on waiting list, discharges possible bd tomorrow. 15:45 Safety checks: Items removed: yes. Door open/sign placed on door: yes. Family/friend jb1 present: no. Sitter present: Yes. 16:00 Safety checks: Items removed: yes. Door open/sign placed on door: yes. Family/friend hk present: no. Sitter present: Yes. 16:15 Safety checks: Items removed: yes. Door open/sign placed on door: yes. Family/friend hk present: no. Sitter present: Yes. 16:30 Safety checks: Items removed: yes. Door open/sign placed on door: yes. Family/friend hk present: no. Sitter present: Yes. 16:30 Diet: pt received dinner tray . hk 16:45 Safety checks: Items removed: Door open/sign placed on door: yes. Family/friend hk present: no. Sitter present: Yes. 16:46 Diet: pt is sitting in bed eating. hk 17:00 Safety checks: Items removed: yes. Door open/sign placed on door: yes. Family/friend hk present: no. Sitter present: Yes. 17:15 Safety checks: Items removed: yes. Door open/sign placed on door: yes. Family/friend hk present: no. Sitter present: Yes. Assisted to bathroom. Assisted to bathroom. 17:30 Safety checks: Items removed: yes. Door open/sign placed on door: yes. Family/friend hk present: no. Sitter present: Yes. 17:45 Safety checks: Items removed: yes. Door open/sign placed on door: yes. Family/friend hk present: no. Sitter present: Yes. 18:00 Safety checks: Items removed: yes. Door open/sign placed on door: yes. Family/friend hk present: no. Sitter present: Yes. 18:15 Safety checks: Items removed: yes. Door open/sign placed on door: yes. Family/friend hk present: no. Sitter present: Yes. 18:30 Safety checks: Items removed: yes. Door open/sign placed on door: yes. Family/friend hk present: no. Sitter present: Yes. 18:45 Safety checks: Items removed: yes. Door open/sign placed on door: yes. Family/friend hk present: no. Sitter present: Yes. 18:57 Safety checks: Items removed: yes. Door open/sign placed on door: yes. Family/friend hk present: no. Sitter present: Yes. 19:09 Safety checks: Items removed: yes. Door open/sign placed on door: yes. Family/friend em4 present: no. Sitter present: Yes. 19:17 Safety checks: Items removed: yes. Door open/sign placed on door: yes. Family/friend em4 present: no. Sitter present: Yes. 19:43 Safety checks: Items removed: yes. Door open/sign placed on door: yes. Family/friend em4 present: no. Sitter present: Yes. 19:55 Safety checks: Items removed: yes. Door open/sign placed on door: yes. Family/friend em4 present: no. Sitter present: Yes. 20:14 Safety checks: Items removed: yes. Door open/sign placed on door: yes. Family/friend em4 present: no. Sitter present: Yes. 20:31 Safety checks: Items removed: yes. Door open/sign placed on door: yes. Family/friend em4 present: no. Sitter present: Yes. 20:49 Safety checks: Items removed: yes. Door open/sign placed on door: yes. Family/friend em4 present: no. Sitter present: Yes. 21:02 Safety checks: Items removed: yes. Door open/sign placed on door: yes. Family/friend em4 present: no. Sitter present: Yes. 21:16 Safety checks: Items removed: yes. Safety checks: Items removed: yes. Door open/sign em4 placed on door: yes. Family/friend present: no. Sitter present: Yes. 21:30 Safety checks: Items removed: yes. Door open/sign placed on door: yes. Family/friend em4 present: no. Sitter present: Yes. 21:44 Safety checks: Items removed: yes. Door open/sign placed on door: yes. Family/friend em4 present: no. Sitter present: Yes. 22:01 Safety checks: Items removed: yes. Door open/sign placed on door: yes. Family/friend em4 present: no. Sitter present: Yes. 22:18 Safety checks: Items removed: yes. Door open/sign placed on door: yes. Family/friend em4 present: no. Sitter present: Yes. 22:32 Safety checks: Items removed: yes. Door open/sign placed on door: yes. Family/friend em4 present: no. Sitter present: Yes. 22:45 Safety checks: Items removed: yes. Door open/sign placed on door: yes. Family/friend em4 present: no. Sitter present: Yes. 22:58 Safety checks: Items removed: yes. Door open/sign placed on door: yes. Family/friend em4 present: no. Sitter present: Yes. 23:36 Safety checks: Items removed: yes. Door open/sign placed on door: yes. Family/friend em4 present: no. Sitter present: Yes. 23:48 Safety checks: Items removed: yes. Door open/sign placed on door: yes. Family/friend em4 present: no. Sitter present: Yes. 10/28 00:00 Safety checks: Items removed: yes. Door open/sign placed on door: yes. Family/friend em4 present: no. Sitter present: Yes. 00:24 Safety checks: Items removed: yes. Door open/sign placed on door: yes. Family/friend em4 present: no. Sitter present: Yes. 00:47 Safety checks: Items removed: yes. Door open/sign placed on door: yes. Family/friend em4 present: no. Sitter present: Yes. 01:00 Safety checks: Items removed: yes. Door open/sign placed on door: yes. Family/friend em4 present: no. Sitter present: Yes. 01:15 Safety checks: Items removed: yes. Door open/sign placed on door: yes. Family/friend em4 present: no. Sitter present: Yes. 01:32 Safety checks: Items removed: yes. Safety checks: Door open/sign placed on door: yes. em4 Family/friend present: no. Sitter present: Yes. 01:48 Safety checks: Items removed: yes. Door open/sign placed on door: yes. Family/friend em4 present: no. Sitter present: Yes. 02:07 Safety checks: Items removed: yes. Door open/sign placed on door: yes. Family/friend em4 present: no. Sitter present: Yes. 02:18 Safety checks: Items removed: yes. Door open/sign placed on door: yes. Family/friend em4 present: no. Sitter present: Yes. 02:30 Safety checks: Items removed: yes. Door open/sign placed on door: yes. Family/friend em4 present: no. Sitter present: Yes. 02:45 Safety checks: Items removed: yes. Door open/sign placed on door: yes. Family/friend em4 present: no. Sitter present: Yes. 03:02 Safety checks: Items removed: yes. Door open/sign placed on door: yes. Family/friend em4 present: no. Sitter present: Yes. 03:15 Safety checks: Items removed: yes. Door open/sign placed on door: yes. Family/friend em4 present: no. Sitter present: Yes. 03:33 Safety checks: Items removed: yes. Safety checks: Items removed: yes. Door open/sign em4 placed on door: yes. Family/friend present: no. Sitter present: Yes. 03:57 Safety checks: Items removed: yes. Door open/sign placed on door: yes. Family/friend em4 present: no. Sitter present: Yes. 04:15 Safety checks: Items removed: yes. Door open/sign placed on door: yes. Family/friend em4 present: no. Sitter present: Yes. 04:30 Safety checks: Items removed: yes. Door open/sign placed on door: yes. Family/friend em4 present: no. Sitter present: Yes. 04:45 Safety checks: Items removed: yes. Door open/sign placed on door: yes. Family/friend em4 present: no. Sitter present: Yes. 05:06 Safety checks: Items removed: yes. Door open/sign placed on door: yes. Family/friend em4 present: no. Sitter present: Yes. 05:16 Safety checks: Items removed: yes. Door open/sign placed on door: yes. Family/friend em4 present: no. Sitter present: Yes. 05:31 Safety checks: Items removed: yes. Door open/sign placed on door: yes. Family/friend em4 present: no. Sitter present: Yes. 05:43 Safety checks: Items removed: yes. Door open/sign placed on door: yes. Family/friend em4 present: no. Sitter present: Yes. 06:03 Safety checks: Items removed: yes. Door open/sign placed on door: yes. Family/friend em4 present: no. Sitter present: Yes. 06:16 Safety checks: Items removed: yes. Door open/sign placed on door: yes. Family/friend em4 present: no. Sitter present: Yes. 06:32 Safety checks: Items removed: yes. Door open/sign placed on door: yes. Family/friend em4 present: no. Sitter present: Yes. 06:47 Safety checks: Items removed: yes. Door open/sign placed on door: yes. Family/friend em4 present: no. Sitter present: Yes. 07:00 Safety checks: Items removed: yes. Door open/sign placed on door: yes. Family/friend mh5 present: no. Sitter present: Yes. 07:15 Safety checks: Items removed: yes. Door open/sign placed on door: yes. Family/friend mh5 present: no. Sitter present: Yes. 07:30 Safety checks: Items removed: yes. Door open/sign placed on door: yes. Family/friend mh5 present: no. Sitter present: Yes. 07:45 Safety checks: Items removed: yes. Door open/sign placed on door: yes. Family/friend mh5 present: no. Sitter present: Yes. 08:01 Safety checks: Items removed: Door open/sign placed on door: Family/friend present: no. wj1 Sitter present: Yes. 08:15 Safety checks: Items removed: Door open/sign placed on door: yes. Family/friend wj1 present: no. Sitter present: Yes. 08:30 Safety checks: Items removed: yes. Door open/sign placed on door: yes. Family/friend wj1 present: no. Sitter present: Yes. 08:45 Safety checks: Items removed: yes. Door open/sign placed on door: yes. Family/friend wj1 present: no. Sitter present: Yes. 09:00 Safety checks: Items removed: yes. Door open/sign placed on door: yes. Family/friend wj1 present: no. Sitter present: Yes. 09:15 Safety checks: Items removed: yes. Safety checks: Door open/sign placed on door: yes. wj1 Family/friend present: no. Sitter present: Yes. 09:30 Safety checks: Items removed: yes. Door open/sign placed on door: yes. Family/friend wj1 present: no. Sitter present: Yes. 09:45 Safety checks: Items removed: yes. Door open/sign placed on door: yes. Family/friend wj1 present: no. Sitter present: Yes. 10:00 Safety checks: Items removed: yes. Door open/sign placed on door: yes. Family/friend wj1 present: no. Sitter present: Yes. 10:15 Safety checks: Items removed: yes. Door open/sign placed on door: yes. Family/friend wj1 present: no. Sitter present: Yes. 10:30 Safety checks: Items removed: yes. Door open/sign placed on door: no. Family/friend wj1 present: no. Sitter present: Yes. 10:45 Safety checks: Items removed: yes. Door open/sign placed on door: no. Family/friend wj1 present: no. Sitter present: Yes. 11:00 Safety checks: Items removed: yes. Door open/sign placed on door: no. Family/friend wj1 present: no. Sitter present: Yes. 11:15 Safety checks: Items removed: yes. Door open/sign placed on door: no. Family/friend wj1 present: no. Sitter present: Yes. Administered Medications: 10/25 09:47 Drug: Ativan 2 mg Route: IVP; Site: left antecubital; iw 18:54 Follow up: Response: No adverse reaction; Anxiety decreased; Patient is sedated ph 09:50 Drug: Motrin 600 mg Route: PO; iw 18:56 Follow up: Response: No adverse reaction ph 10:11 Drug: Nicotine 21 mg/24 hr 1 patches Route: Transdermal; Site: affected area; ph 18:56 Follow up: Response: No adverse reaction ph 10/26 00:14 Drug: Potassium Chloride 40 mEq Route: PO; jd3 01:03 Follow up: Response: No adverse reaction jd3 00:57 Not Given (Other Intervention Used): Ativan 2 mg PO once jd3 00:57 Drug: Motrin 600 mg Route: PO; jd3 01:55 Follow up: Response: No adverse reaction jd3 01:02 Drug: Ativan 2 mg Route: IVP; Site: left antecubital; jd3 02:00 Follow up: Response: No adverse reaction jd3 01:14 CANCELLED (Physician Discretion): Ativan 2 mg IVP once jd3 01:16 CANCELLED (Physician Discretion): Motrin 600 mg PO once jd3 18:38 Drug: Motrin 600 mg Route: PO; aj 20:00 Follow up: Response: No adverse reaction rr5 19:39 Drug: Ativan 1 mg {Note: ordered by dr. valverde.} Route: IVP; Site: left antecubital; rr5 20:40 Follow up: Response: No adverse reaction rr5 10/27 18:51 Drug: Motrin 600 mg Route: PO; em 19:30 Follow up: Response: No adverse reaction; Pain is decreased cc3 18:51 Drug: Ativan 1 mg Route: IVP; Site: left hand; em 19:30 Follow up: Response: No adverse reaction cc3 10/28 02:10 Drug: Ativan 1 mg Route: IVP; Site: left hand; cc3 02:39 Follow up: Response: No adverse reaction cc3 10:30 Drug: Nicoderm CQ 21 mg/24 hr 1 patches {Note: administered to L upper arm. Old patch ss removed..} Route: Transdermal; Site: affected area; Intake: 10/27 17:30 PO: 620ml; Total: 620ml. hk Outcome: 10/25 18:17 ER care complete, transfer ordered by MD. bermudez 10/28 09:31 Transferred by ground EMS Transfer form completed. X-rays sent w/ patient. Note: St ca1 Jovan Condition: stable Instructed on the need for transfer, Demonstrated understanding of instructions, report given to SADI Sparks 11:30 Patient left the ED. ca1 Signatures: Santana Oakley jb1 Kandi Maurice Amanda, RN Chucky Santizo, RESERVATIONIST RESERVATIONIST em Elissa Craft RN RN iw Nieto, Roman, MD MD rn Smirch, Shelby, RN RN ss Harini Wilkins RN RN ed1 Airam Hopkins, transport operations inspector EKG Tat1 Clare Bai, RN SADI Shahriar Bolanos, RN SADI hj Josephine Devries RN RN tw2 Philipp Trejo RN RN jb4 Nargis Mendoza 5 Yola Mahmood 3 Tk Robison RN RN jd3 Danielle Whittington Jacob jp3 Mahnaz Elise w Mc [facility] ms1 Briseyda Lazaro cc3 Rogelio Lawson RN RN rr5 Michelle Soria RN SADI ca1 Peewee, Bren cm6 Siobhan Mendoza em4 Laura Brown Corrections: (The following items were deleted from the chart) 10/26 00:47 00:30 Safety Checks: Personal items have been removed. The door is open or patient has ms1 been placed in a hallway bed/chair. There are no family/friend visitors at this time Sitter present at this time. Pt stated " I need pain medication, my right arm is hurting, also I need the Ativan." Informed SADI Frey about the pt's request, ms1 01:06 00:48 Reassessment: pt reporting pain in right arm and wanting medication to help her jd3 sleep. jd3 01:14 01:02 Ativan 2 mg IVP in left antecubital jd3 jd3 01:15 00:57 Motrin 600 mg PO jd3 jd3 07:15 03:00 Reassessment: Patient appears in no apparent distress at this time. No changes jd3 from previously documented assessment. Patient and/or family updated on plan of care and expected duration. Pain level reassessed. Patient is alert, oriented x 3, equal unlabored respirations, skin warm/dry/pink. jd3 18:13 17:45 Reassessment: escorted patient through department, escorted patient to [facility] to sit and warm up, pt is calm but begins to rant about not wanting to be here, pt reeducated on her psych hold status and the comments she made yesterday, pt states "well what do you expect, these people are watching me, they took my kids from me, how would you feel?" pt then escorted back to room 17, pt calmed down, escorted to bathroom, gave pt clean socks, changed dressing, gave warm blankets, pt asking for something to help her sleep iw 18:54 18:30 Safety checks: Items removed: yes. Door open/sign placed on door: yes. 3 Family/friend present: no. Sitter present: Yes. [facility] 19:17 19:15 Safety checks: Items removed: yes. Door open/sign placed on door: yes. cm6 Family/friend present: yes. Sitter present: Yes. cm6 10/27 11:45 11:29 Safety checks: Items removed: yes. Door open/sign placed on door: yes. jb1 Family/friend present: no. Sitter present: Yes. jb1 14:14 14:09 Bath given. Linen changed. hk 16:31 16:29 Safety checks: Items removed: yes. Door open/sign placed on door: yes. hk Family/friend present: no. Sitter present: Yes. hk 16:54 16:46 Safety checks: Items removed: Door open/sign placed on door: yes. Family/friend hk present: no. Sitter present: Yes. hk 18:15 18:14 Safety checks: Items removed: yes. Door open/sign placed on door: yes. hk Family/friend present: no. Sitter present: Yes. hk 21:08 20:20 Reassessment: Patient appears in no apparent distress at this time. Patient cc3 and/or family updated on plan of care and expected duration. Pain level reassessed. Patient is alert, oriented x 3, equal unlabored respirations, skin warm/dry/pink. cc3 10/28 03:03 03:02 Safety checks: Items removed: yes. Door open/sign placed on door: yes. em4 Family/friend present: no. Sitter present: Yes. em4 04:18 03:57 Safety checks: Items removed: yes. Door open/sign placed on door: Patient placed em4 in hallway bed. yes. Family/friend present: no. Sitter present: Yes. em4 04:19 03:57 Safety checks: Items removed: yes. Door open/sign placed on door: Patient placed em4 in hallway bed. yes. Family/friend present: no. Sitter present: Yes. em4 04:20 10/27 23:36 Safety checks: Items removed: yes. Door open/sign placed on door: Patient em4 placed in hallway bed. yes. Family/friend present: no. Sitter present: Yes. em4 10/28 04:21 00:24 Safety checks: Items removed: yes. Door open/sign placed on door: yes. em4 Family/friend present: yes. no. Sitter present: Yes. em4 04:22 10/27 23:48 Safety checks: Items removed: yes. Door open/sign placed on door: yes. em4 Family/friend present: yes. no. Sitter present: Yes. em4
--- NOTE | 2018-10-25 18:17 | EDPHYS ---
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 09:21 The patient presents to the emergency department with homicidal ideation. Onset: The rn symptoms/episode began/occurred at an unknown time. Severity of symptoms: At their worst the symptoms were moderate in the emergency department the symptoms are unchanged. The patient has experienced similar episodes in the past. Brought in by mental health deputy, patient called 911 stating she was going to kill someone specifically, reports that her family has been "stalking" and making her sleep outside for a year now, is tired of it. Upon arrival at house, deputy states "trashed", patient rambling, aggressive and required to be handcuffed, making repeated threats to hurt someone and yelling. Unknown if drug abuse. Seen here last night for punching window, had laceration to hand without bony injury. . PERIPHERAL VASCULAR TECH: 10/28 11:00 unknown ca1 Historical: - Allergies: 10/25 09:36 No Known Allergies; ph - Home Meds: 13:42 BuSpar Oral [Active]; Topamax Oral [Active]; Wellbutrin Oral [Active]; Zoloft Oral ph [Active]; risperidone oral oral [Active]; - PMHx: 09:36 Hepatitis; ph 13:42 Major depressive disorder; Personality Disorder; ETOH dependency; Drug Abuse; ph - PSHx: 13:42 ; ph - Immunization history:: Adult Immunizations unknown. - Family history:: not pertinent. - Social history:: Smoking status: Patient uses tobacco products, unknown amount. - Ebola Screening: : No symptoms or risks identified at this time. - Hospitalizations: : No recent hospitalization is reported. ROS: 09:21 Constitutional: Negative for fever, chills, and weight loss, Eyes: Negative for injury, rn pain, redness, and discharge, Neck: Negative for injury, pain, and swelling, Cardiovascular: Negative for chest pain, palpitations, and edema, Respiratory: Negative for shortness of breath, cough, wheezing, and pleuritic chest pain, Abdomen/GI: Negative for abdominal pain, nausea, vomiting, diarrhea, and constipation, MS/Extremity: Negative for deformity, Skin: + soft tissue injury to right hand Neuro: Negative for headache, weakness, numbness, tingling, and seizure. Exam: 09:21 Constitutional: This is a well developed, well nourished patient who is awake, alert, rn yelling and using profanity Head/Face: Normocephalic, atraumatic. Eyes: Pupils equal round and reactive to light, extra-ocular motions intact. Lids and lashes normal. Conjunctiva and sclera are non-icteric and not injected. Cornea within normal limits. Periorbital areas with no swelling, redness, or edema. ENT: dry MM Cardiovascular: Tachycardic, regular, no murmur Respiratory: Lungs have equal breath sounds bilaterally, clear to auscultation and percussion. No rales, rhonchi or wheezes noted. No increased work of breathing, no retractions or nasal flaring. Abdomen/GI: Soft, non-tender, with normal bowel sounds. No distension or tympany. No guarding or rebound. No evidence of tenderness throughout. MS/ Extremity: Pulses equal, no cyanosis. Neurovascular intact. Full, normal range of motion. Equal circumference. Neuro: Awake and alert, GCS 15, oriented to person, place, time, and situation. Cranial nerves II-XII grossly intact. Motor strength 5/5 in all extremities. Sensory grossly intact. Cerebellar exam normal. Normal gait. 09:34 ECG was reviewed by the Attending Physician. rn Vital Signs: 09:32 BP 135 / 116; Pulse 110; Resp 22; Temp 97.3; Pulse Ox 98% on R/A; ph 14:21 BP 107 / 71; Pulse 85; Resp 18; Pulse Ox 99% on R/A; jb1 17:20 BP 112 / 75; Pulse 82; Resp 17; Pulse Ox 100% on R/A; jb1 20:00 BP 107 / 69 LA (auto/); Pulse 81 MON; Resp 18 S; Temp 97.7(TE); Pulse Ox 97% on R/A; ms1 Pain 0/10; 10/26 00:00 BP 106 / 66 LA (auto/); Pulse 78 MON; Resp 18 S; Temp 97.9; Pulse Ox 97% on R/A; Pain ms1 0/10; 01:19 Weight 63.5 kg (R); Height 5 ft. 0 in. (152.40 cm) (R); jd3 05:19 BP 99 / 71 LA; Pulse 81 MON; Resp 18 S; Temp 98(TE); Pulse Ox 97% on R/A; Pain 0/10; ms1 05:54 BP 106 / 64 LA; Pulse 74 MON; Resp 18 S; Temp 98(TE); Pulse Ox 98% on R/A; Pain 0/10; ms1 09:50 BP 110 / 72; Pulse 83; Resp 18; Temp 97.6(TE); Pulse Ox 98% on R/A; Pain 0/10; dh3 13:50 BP 108 / 63; Pulse 72; Resp 18; Temp 98.0(TE); Pulse Ox 99% on R/A; Pain 0/10; dh3 17:50 BP 110 / 70; Pulse 85; Resp 18; Temp 97.7(A); Pulse Ox 99% on R/A; Pain 0/10; dh3 19:24 BP 117 / 71; Pulse 83; Resp 18; Temp 97.7; Pulse Ox 98% ; Pain 0/10; cm6 22:45 BP 100 / 67; Pulse 80; Resp 18; Temp 98.6; Pulse Ox 99% ; Pain 0/10; cm6 10/27 00:00 BP 103 / 64; Pulse 80; Resp 18; Temp 97.7; Pulse Ox 96% ; Pain 0/10; cm6 03:00 BP 97 / 65; Pulse 80; Resp 18; Temp 97.6; Pulse Ox 98% ; Pain 0/10; cm6 06:00 BP 110 / 60; Pulse 84; Resp 18; Temp 98.0; Pulse Ox 95% ; Pain 0/10; cm6 08:49 BP 104 / 62; Pulse 72; Resp 17; Pulse Ox 98% on R/A; jb1 17:26 BP 122 / 69; Pulse 89; Resp 20; Temp 99.3; Pulse Ox 98% on R/A; 10/28 00:22 BP 96 / 68; Pulse 77; Resp 20; Temp 98.8; Pulse Ox 97% on R/A; em4 03:40 BP 119 / 65; Pulse 78; Resp 20; Temp 99.0; Pulse Ox 95% on R/A; em4 07:00 BP 97 / 68; Pulse 78; Resp 15; Temp 97.8(TE); Pulse Ox 97% on R/A; mh5 11:05 BP 116 / 65; Pulse 74; Resp 16 S; Temp 98.1(O); Pulse Ox 98% on R/A; ca1 10/26 01:19 Body Mass Index 27.34 (63.50 kg, 152.40 cm) jd3 MDM: 10/25 09:16 Patient medically screened. rn 09:21 ED course: Patient reported homicidal threats to ex-, who no longer lives with rn her, has "2 machetes waiting by the door". . 10:31 ED course: Pt sleeping comfortably. rn 18:14 Differential diagnosis: depression, psychosis secondary to non-compliance. Data rn reviewed: vital signs, nurses notes, lab test result(s). Counseling: I had a detailed discussion with the patient and/or guardian regarding: the historical points, exam findings, and any diagnostic results supporting the discharge/admit diagnosis, lab results. ED course: Evaluated by [facility], recommend inpatient transfer, information faxed, waiting for call back. . 19:42 ED course: reassessment note, patient is pending psych transfer, medically cleared by ma2 previous shift, VS wnl, patient has been pleasant with no new complaints. 10/27 06:07 ED course: Patient in no distress. Awaiting transfer availability. Patient still having pkl suicidal and homicidal ideations. 10/28 08:18 ED course: Pt sleeping comfortably, awaiting psychiatric transfer, not requiring rn sedation, still reports will hurt family if they "continue to bother her". Reports they hide in bushes and cause her to be like this by stalking her. . 10:23 ED course: Accepted for transfer to [facility], spoke with Dr. Randall and ER doctor. . rn 10/25 09:17 Order name: Acetaminophen rn 10/25 09:17 Order name: Basic Metabolic Panel rn 10/25 09:17 Order name: CBC with Diff rn 10/25 09:17 Order name: ETOH Level rn 10/25 09:17 Order name: Hepatic Function rn 10/25 09:17 Order name: PT-INR rn 10/25 09:17 Order name: Ptt, Activated rn 10/25 09:17 Order name: Salicylate rn 10/25 09:17 Order name: Urine Drug Screen 10/25 10:12 Order name: Salicylates Level; Complete Time: 11:30 EDMS 10/25 10:13 Order name: Urine Dipstick--Ancillary (enter results) 10/25 10:13 Order name: Urine --Ancillary (enter results) 10/25 10:18 Order name: Alcohol Serum/Plasma; Complete Time: 11:30 EDMS 10/25 10:19 Order name: Basic Metabolic Panel; Complete Time: 11:30 EDMS 10/25 10:19 Order name: Liver (Hepatic) Function; Complete Time: 11:30 EDMS 10/25 10:19 Order name: Acetaminophen Level; Complete Time: 11:30 EDMS 10/25 10:47 Order name: CBC with Automated Diff; Complete Time: 11:30 EDMS 10/25 10:50 Order name: Protime (+INR); Complete Time: 11:30 EDMS 10/25 10:50 Order name: PTT, Activated Partial Thromb; Complete Time: 11:30 EDMS 10/25 10:51 Order name: Urine Drug Screen; Complete Time: 11:30 EDMS 10/25 13:10 Order name: Urine --Ancillary; Complete Time: 17:07 EDMS 10/25 13:10 Order name: Urine Dipstick-Ancillary; Complete Time: 17:07 EDGA 10/25 09:17 Order name: Urine Test (obtain specimen); Complete Time: 10:19 rn 10/25 09:17 Order name: EKG; Complete Time: 09:19 rn 10/25 09:17 Order name: EKG - Nurse/Tech; Complete Time: 09:48 rn 10/25 09:17 Order name: IV Saline Lock; Complete Time: 09:48 rn 10/25 09:17 Order name: Labs collected and sent; Complete Time: 09:48 rn 10/25 09:17 Order name: Urine Dipstick-Ancillary (obtain specimen); Complete Time: 10:19 rn 10/25 13:48 Order name: Vital Signs; Complete Time: 14:21 iw 10/25 15:52 Order name: Diet Regular; Complete Time: 16:36 ph 10/26 07:28 Order name: Diet Regular; Complete Time: 07:29 em 10/26 12:07 Order name: Diet Regular; Complete Time: 12:08 dh3 10/26 17:08 Order name: Diet Regular; Complete Time: 17:12 dh3 10/27 06:46 Order name: Diet Regular; Complete Time: 06:47 rr5 10/28 07:16 Order name: Diet Regular; Complete Time: 07:17 mh5 EC/21 09:34 Rate is 106 beats/min. Rhythm is regular. QRS [place] is Normal. MT interval is normal. rn QRS interval is normal. QT interval is normal. No Q waves. T waves are Normal. No ST changes noted. Clinical impression: Sinus tachycardia. Interpreted by me. Reviewed by me. Administered Medications: 09:47 Drug: Ativan 2 mg Route: IVP; Site: left antecubital; iw 18:54 Follow up: Response: No adverse reaction; Anxiety decreased; Patient is sedated ph 09:50 Drug: Motrin 600 mg Route: PO; iw 18:56 Follow up: Response: No adverse reaction ph 10:11 Drug: Nicotine 21 mg/24 hr 1 patches Route: Transdermal; Site: affected area; ph 18:56 Follow up: Response: No adverse reaction ph 10/26 00:14 Drug: Potassium Chloride 40 mEq Route: PO; jd3 01:03 Follow up: Response: No adverse reaction jd3 00:57 Not Given (Other Intervention Used): Ativan 2 mg PO once jd3 00:57 Drug: Motrin 600 mg Route: PO; jd3 01:55 Follow up: Response: No adverse reaction jd3 01:02 Drug: Ativan 2 mg Route: IVP; Site: left antecubital; jd3 02:00 Follow up: Response: No adverse reaction jd3 01:14 CANCELLED (Physician Discretion): Ativan 2 mg IVP once jd3 01:16 CANCELLED (Physician Discretion): Motrin 600 mg PO once jd3 18:38 Drug: Motrin 600 mg Route: PO; aj 20:00 Follow up: Response: No adverse reaction rr5 19:39 Drug: Ativan 1 mg {Note: ordered by dr. turner} Route: IVP; Site: left antecubital; rr5 20:40 Follow up: Response: No adverse reaction rr5 10/27 18:51 Drug: Motrin 600 mg Route: PO; em 19:30 Follow up: Response: No adverse reaction; Pain is decreased cc3 18:51 Drug: Ativan 1 mg Route: IVP; Site: left hand; em 19:30 Follow up: Response: No adverse reaction cc3 10/28 02:10 Drug: Ativan 1 mg Route: IVP; Site: left hand; cc3 02:39 Follow up: Response: No adverse reaction cc3 10:30 Drug: Nicoderm CQ 21 mg/24 hr 1 patches {Note: administered to L upper arm. Old patch ss removed..} Route: Transdermal; Site: affected area; Disposition: 10/25/18 18:17 Transfer ordered to Psych Facility. Diagnosis is Homicidal ideations. - Reason for transfer: Higher level of care. - Accepting physician is Dr. Randall. - Condition is Stable. - Problem is new. - Symptoms are unchanged. Signatures: Dispatcher [employer] Airam Erickson RN Daniel Morse MD MD pkChucky Olvera, RETAIL SUPERVISOR RETAIL SUPERVISOR em Elissa Craft, RN SADI iw Fish Rhodes MD MD rn Smirch, Shelby RN SADI ss Clare Bai RN RN Mitch Gaxiola MD MD wa Davies, Jonathon, RN RN jd3 Chelita Raman MD MD ma2 Briseyda Lazaro cc3 Rogelio Lawson RN RN rr5 Michelle Soria RN RN ca1 Corrections: (The following items were deleted from the chart) 10/25 09:35 09:21 Constitutional: This is a well developed, well nourished patient who is awake, rn alert, yelling and using profanity Head/Face: Normocephalic, atraumatic. Eyes: Pupils equal round and reactive to light, extra-ocular motions intact. Lids and lashes normal. Conjunctiva and sclera are non-icteric and not injected. Cornea within normal limits. Periorbital areas with no swelling, redness, or edema. ENT: dry MM Cardiovascular: Regular rate and rhythm with a normal S1 and S2. No gallops, murmurs, or rubs. Normal PMI, no JVD. No pulse deficits. Respiratory: Lungs have equal breath sounds bilaterally, clear to auscultation and percussion. No rales, rhonchi or wheezes noted. No increased work of breathing, no retractions or nasal flaring. Abdomen/GI: Soft, non-tender, with normal bowel sounds. No distension or tympany. No guarding or rebound. No evidence of tenderness throughout. MS/ Extremity: Pulses equal, no cyanosis. Neurovascular intact. Full, normal range of motion. Equal circumference. Neuro: Awake and alert, GCS 15, oriented to person, place, time, and situation. Cranial nerves II-XII grossly intact. Motor strength 5/5 in all extremities. Sensory grossly intact. Cerebellar exam normal. Normal gait. rn 10/26 01:14 00:57 Ativan 2 mg IVP once ordered. luc jd3 01:14 01:03 Ativan 2 mg IVP once given. jd3 jd3 :14 01:14 Ativan 2 mg IVP once ordered. jd3 jd3 01:16 00:45 Motrin 600 mg PO once ordered. ma2 jd3 01:16 00:57 Motrin 600 mg PO once given. jd3 jd3 01:16 01:15 Motrin 600 mg PO once ordered. jd3 jd3 10/28 10:24 10/25 18:17 10/25/2018 18:17 Transfer ordered to Psych Facility. Diagnosis is Homicidal rn ideations. Reason for transfer: Higher level of care. Accepting physician is . Condition is Stable. Problem is new. Symptoms are unchanged. rn 10/28 11:30 10:24 10/25/2018 18:17 Transfer ordered to Psych Facility. Diagnosis is Homicidal ca1 ideations. Reason for transfer: Higher level of care. Accepting physician is Dr. Randall. Condition is Stable. Problem is new. Symptoms are unchanged. rn
[2018-10-26] MEDS ORDERED: IBUPROFEN 200 MG TAB PO ONE ×2 (01:02→18:45)
[2018-10-26] MEDS ORDERED: LORazepam 2 MG/ML VIAL ONE ×2 (01:02→19:52)
[2018-10-27] MEDS ORDERED: IBUPROFEN 400 MG TAB ONE (18:51)
[2018-10-27] MEDS ORDERED: LORazepam 2 MG/ML VIAL ONE (18:51)
[2018-10-27] MEDS ORDERED: IBUPROFEN 200 MG TAB PO ONE (18:51)
[2018-10-28] MEDS ORDERED: LORazepam 2 MG/ML VIAL ONE (02:23)
[2018-10-28] MEDS ORDERED: NICOTINE 21 MG/PAT TD ONE (10:45)
== END 2018-10-28 11:30 ==
LOC: ER 09:12
DX: R45.850 Homicidal ideations (principal); F33.9 Major depressive disorder, recurrent, unspecified; Z72.0 Tobacco use
CPT/HCPCS: 36415; 80048; 80076; 80307; 80320; 80329; 81003; 81025; 85025; 85610; 85730; 93005; 99285